=== PATIENT | female | born 1945 | race Caucasian/White ===

== ENCOUNTER 2021-08-10 16:09 | Inpatient (IN) | payer BC, OTHER ==
[2021-08-10 16:48] VITALS: BMI 31.4
[2021-08-10] MEDS ORDERED: ACETAMINOPHEN 1000 MG/100 ML BAG IVPB ONE (17:52)
[2021-08-10] MEDS ORDERED: ACETAMINOPHEN INJECTION 100 ML IVPB ONE (18:09)
[2021-08-10 18:58] LABS: BASO % 0.6 % (0-2.0); EOS % 0.6 % (0-4.5); HEMATOCRIT 40.1 % (32.4-45.2); HEMOGLOBIN 13.2 GM/dL (10.7-15.3); LYMPH % 16.7 % (8-40); MCH 28.9 pg (25.7-33.7); MEAN CELL VOLUME 87.6 fl (80-96); MEAN PLT VOLUME 7.8 fl (7.5-11.1); MONO % 4.4 % (3.8-10.2); NEUT % 77.7 % (42.8-82.8); PLATELET COUNT 327 10^3/uL (134-434); RBC 4.58 M/mm3 (3.60-5.2); RDW 13.5 % (11.6-15.6); WHITE BLOOD COUNT 15.5 K/mm3 (4.0-10.0)
[2021-08-10 19:01] LABS: EPI CELLS >36 /uL (0-25.1); HYALINE CASTS 17 /uL (0-3.1); URINE APPEARANCE CLOUDY; URINE BACTERIA >9,000 /uL (0-1359); URINE BILIRUBIN NEGATIVE (NEGATIVE); URINE COLOR DK YELLOW; URINE GLUCOSE (UA) TRACE (NEGATIVE); URINE KETONE TRACE (NEGATIVE); URINE LEUK ESTERASE 1+ (NEGATIVE); URINE NITRITE POSITIVE (NEGATIVE); URINE PROTEIN 1+ (NEGATIVE); URINE RBC 18 /uL (0-23.9); URINE UROBILINOGEN 0.2 mg/dL (0.2-1.0); URINE WBC 255 /uL (0-25.8)
[2021-08-10] MEDS ORDERED: CEFTRIAXONE 1,000 MG in DEXTROSE 5%-WATER - 50 ML IVPB ONE (19:12)
[2021-08-10 19:18] LABS: CALCIUM 9.5 mg/dL (8.5-10.1)
[2021-08-10 19:19] LABS: ALBUMIN 3.8 g/dl (3.4-5.0)
[2021-08-10 19:22] LABS: CREATININE 1.8 mg/dL (0.55-1.3)
[2021-08-10 19:23] LABS: BILIRUBIN,TOTAL 0.3 mg/dL (0.2-1); TOT PROT 6.9 g/dl (6.4-8.2)
[2021-08-10] MEDS ORDERED: CEFTRIAXONE 1 GM/50 ML BAG ONE (21:59)
[2021-08-10] MEDS: SODIUM CHLORIDE 1,000 ML IV SCH (22:55)
[2021-08-10 23:10] LABS: N-TERMINAL BNP 120.3 pg/ml (5-450)
[2021-08-11] MEDS ORDERED: ACETAMINOPHEN 1000 MG/100 ML BAG IVPB ONE (03:20)
[2021-08-11] MEDS ORDERED: ACETAMINOPHEN INJECTION 100 ML IVPB ONE (03:30)
[2021-08-11 07:19] LABS: BASO % 0.7 % (0-2.0); HEMATOCRIT 36.9 % (32.4-45.2); HEMOGLOBIN 12.4 GM/dL (10.7-15.3); LYMPH % 24.3 % (8-40); MCH 29.5 pg (25.7-33.7); MCHC 33.5 g/dl (32.0-36.0); MEAN CELL VOLUME 88.1 fl (80-96); MEAN PLT VOLUME 7.9 fl (7.5-11.1); MONO % 5.3 % (3.8-10.2); NEUT % 66.7 % (42.8-82.8); PLATELET COUNT 235 10^3/uL (134-434); RBC 4.19 M/mm3 (3.60-5.2); RDW 13.7 % (11.6-15.6); WHITE BLOOD COUNT 10.8 K/mm3 (4.0-10.0)
[2021-08-11] MEDS ORDERED: CEFTRIAXONE 1 GM/50 ML BAG ONE (07:34)
[2021-08-11] MEDS ORDERED: ENOXAPARIN NA (PORCINE) 40 MG/0.4 ML DISP.SYRIN SQ ONE (07:34)
[2021-08-11 07:56] LABS: CALCIUM 8.7 mg/dL (8.5-10.1)
[2021-08-11 07:57] LABS: ALBUMIN 3.3 g/dl (3.4-5.0); BLOOD UREA NITROGEN 49.3 mg/dL (7-18); MAGNESIUM 1.9 mg/dL (1.8-2.4)
[2021-08-11 08:00] LABS: CREATININE 1.4 mg/dL (0.55-1.3); PHOSPHOROUS 4.3 mg/dL (2.5-4.9)
[2021-08-11] MEDS: INSULIN SLIDING SCALE (NOVOLOG) 1 VIAL SQ SCH ×3 (08:00→16:47)
[2021-08-11 08:01] LABS: TOT PROT 6.3 g/dl (6.4-8.2)
[2021-08-11 08:02] LABS: BILIRUBIN,TOTAL 0.6 mg/dL (0.2-1)
[2021-08-11] MEDS ORDERED: CEFTRIAXONE 1 GM in DEXTROSE 5%-WATER - 50 ML IVPB SCH (10:00)
[2021-08-11] MEDS ORDERED: metFORMIN HCL 500 MG TABLET (FP) ONE (10:38)
[2021-08-11] MEDS: BUDESONIDE/FORMETEROL FUMARATE 160/4.5 mcg INHALER IH SCH ×2 (11:05→21:42)
[2021-08-11] MEDS: ENOXAPARIN NA (PORCINE) 40 MG/0.4 ML DISP.SYRIN SQ SCH (11:05)
[2021-08-11] MEDS: metFORMIN HCL 500 MG TABLET (FP) PO SCH ×3 (11:06→16:47)
[2021-08-11] MEDS: SODIUM CHLORIDE 1,000 ML IV SCH (11:07)
[2021-08-11] MEDS: VALSARTAN 160 MG TABLET PO SCH (13:00)
[2021-08-11] MEDS: glyBURIDE 5 MG TABLET PO SCH ×2 (13:00→17:06)
[2021-08-11 16:40] LABS: CALCIUM 9.2 mg/dL (8.5-10.1)
[2021-08-11 16:41] LABS: BLOOD UREA NITROGEN 36.4 mg/dL (7-18)
[2021-08-11 16:44] LABS: CREATININE 1.3 mg/dL (0.55-1.3)
[2021-08-12] MEDS: metFORMIN HCL 500 MG TABLET (FP) PO SCH (06:29)
[2021-08-12] MEDS: glyBURIDE 5 MG TABLET PO SCH (06:29)
[2021-08-12] MEDS: SODIUM CHLORIDE 1,000 ML IV SCH (06:30)
[2021-08-12 08:24] VITALS: BP 146/58; PULSE 95
[2021-08-12 08:28] VITALS: TEMP 98.9
[2021-08-12 09:09] LABS: CALCIUM 9.3 mg/dL (8.5-10.1)
[2021-08-12 09:10] LABS: ALBUMIN 3.6 g/dl (3.4-5.0); BLOOD UREA NITROGEN 29.4 mg/dL (7-18)
[2021-08-12] MEDS: VALSARTAN 160 MG TABLET PO SCH (09:10)
[2021-08-12] MEDS: ENOXAPARIN NA (PORCINE) 40 MG/0.4 ML DISP.SYRIN SQ SCH (09:11)
[2021-08-12] MEDS: BUDESONIDE/FORMETEROL FUMARATE 160/4.5 mcg INHALER IH SCH (09:12)
[2021-08-12 09:14] LABS: BILIRUBIN,TOTAL 0.7 mg/dL (0.2-1); TOT PROT 6.7 g/dl (6.4-8.2)
== END 2021-08-12 14:15 | disposition home or self-care (01) | DRG 312 ==
LOC: JER 16:09 → JERBED 21:47 → J8W 08-11 15:53
PROVIDERS: ADMIT Hospitalist; ATTEND Internal Medicine
DX: I95.1 Orthostatic hypotension (principal); N17.9 Acute kidney failure, unspecified; I10 Essential (primary) hypertension; E11.9 Type 2 diabetes mellitus without complications; E78.5 Hyperlipidemia, unspecified; E86.0 Dehydration; D72.829 Elevated white blood cell count, unspecified
CPT/HCPCS: 36415; 70450-TC; 71046-TC-FY; 72125-TC; 73110-TC-RT-FY; 73130-TC-RT-FY; 73562-TC-RT-FY; 80048; 80053; 81003; 82010; 82962; 83036; 83735; 83880; 84100; 84443; 84484; 85025; 87086; 87186; 93005; 93010; 93880-TC; 99285-25; C9803-CS; G0378; U0003; U0005

== ENCOUNTER 2021-09-27 08:39 | Day surgery (SDC) | payer BC, OTHER ==
[2021-09-23 12:48] VITALS: BMI 31.4
[2021-09-27 09:15] VITALS: TEMP 97
[2021-09-27 10:34] VITALS: RESP 18
[2021-09-27 10:47] VITALS: BP 112/66; PULSE 62
== END 2021-09-27 11:45 | disposition home or self-care (01) ==
LOC: FASU-ENDO 08:39
PROVIDERS: ATTEND Internal Medicine Gastroenterology
PROC: 0DBP8ZX Excision of Rectum, Via Natural or Artificial Opening Endoscopic, Diagnostic (ICD-10-PCS; principal; 2021-09-27 09:57)
DX: Z12.11 Encounter for screening for malignant neoplasm of colon (principal); K57.30 Diverticulosis of large intestine without perforation or abscess without bleeding; R19.7 Diarrhea, unspecified
CPT/HCPCS: 82962; 88305-TC